=== PATIENT | female | born 1975 | race Hispanic/Latino ===

== ENCOUNTER 2018-10-02 18:17 | Emergency (ER) | payer SELFPAY ==
--- NOTE | 2018-10-02 19:04 | RAD REPORT ---
EXAM DESCRIPTION: RAD - Chest Pa And Lat (2 Views) - 10/02/2018 6:57 pm CLINICAL HISTORY: Cough;Congestion Chest pain. COMPARISON: <Comparisons> FINDINGS: Interstitial markings are mildly prominent which could indicate a viral pneumonitis chroni c bronchitis. Calcified granuloma is seen in the anterior retrosternal airspace. No focal consolidati on typical of bacterial pneumonia is seen. The heart is normal in size. No displaced fractures.
[2018-10-02] MEDS ORDERED: NA CHLORIDE 0.9% 1,000 ML ONE (19:22)
[2018-10-02] MEDS ORDERED: IBUPROFEN 200 MG TAB PO ONE (19:22)
[2018-10-02 19:35] LABS: Absolute Lymphocytes (CBC) 0.3 K/uL (0.7-4.9); Absolute Monocytes 0.5 K/uL (0.1-1.3); Absolute Neutrophil 6.2 K/uL (1.8-8.0); Basophils % 0.4 % (0-1.3); Eosinophils % 0.6 % (0-4.4); Hematocrit 37.9 % (36.0-45.0); Lymphocytes % 3.9 % (15.3-44.8); Monocytes % 6.5 % (3.3-12.3); RBC Red Blood Cell Count 4.24 M/uL (3.86-4.86)
[2018-10-02 19:50] LABS: Albumin 3.9 g/dL (3.4-5.0); Bilirubin Direct 0.2 mg/dL (0-0.2); Bilirubin Total 0.6 mg/dL (0.2-1.0); Potassium 3.8 mmol/L (3.5-5.1)
--- NOTE | 2018-10-02 20:18 | EDPHYS ---
Physician Documentation [facility] Name: Jaja Vanegas Age: 43 yrs Sex: Female : 1975 Arrival Date: 10/02/2018 Time: 18:22 Bed 14 Private MD: ED Physician Mark Ho HPI: 10/02 20:19 This 43 yrs old Female presents to ER via Ambulatory with complaints of kb Abdominal Pain, Nausea. 20:19 The patient presents with abdominal pain that is diffuse. Onset: The symptoms/episode kb began/occurred today. The symptoms do not radiate. Associated signs and symptoms: Pertinent positives: fever, nausea. The symptoms are described as constant. Modifying factors: The symptoms are alleviated by nothing, the symptoms are aggravated by nothing. Severity of pain: At its worst the pain was mild moderate in the emergency department the pain is unchanged. The patient has not experienced similar symptoms in the past. The patient has not recently seen a physician. Pt reports cough, sore throat, fever, abd pain and nausea . 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 - Social history:: Smoking status: Patient/guardian denies using tobacco. - Ebola Screening: : No symptoms or risks identified at this time. ROS: 20:19 Neck: Negative for injury, pain, and swelling, Cardiovascular: Negative for chest pain, kb palpitations, and edema, Back: Negative for injury and pain, : Negative for injury, bleeding, discharge, and swelling, MS/Extremity: Negative for injury and deformity, Skin: Negative for injury, rash, and discoloration, Neuro: Negative for headache, weakness, numbness, tingling, and seizure. 20:19 Constitutional: Positive for body aches, chills, fatigue, fever, malaise. 20:19 ENT: Positive for sore throat. 20:19 Respiratory: Positive for cough, Negative for dyspnea on exertion, hemoptysis, orthopnea, pleurisy, shortness of breath, sputum production, wheezing. 20:19 Abdomen/GI: Positive for abdominal pain, nausea. Exam: 20:18 Constitutional: This is a well developed, well nourished patient who is awake, alert, kb and in no acute distress. Head/Face: Normocephalic, atraumatic. ENT: Nares patent. No nasal discharge, no septal abnormalities noted. Tympanic membranes are normal and external auditory canals are clear. Oropharynx with no redness, swelling, or masses, exudates, or evidence of obstruction, uvula midline. Mucous membranes moist. Neck: Trachea midline, no thyromegaly or masses palpated, and no cervical lymphadenopathy. Supple, full range of motion without nuchal rigidity, or vertebral point tenderness. No Meningismus. Chest/axilla: Normal chest wall appearance and motion. Nontender with no deformity. No lesions are appreciated. Cardiovascular: Regular rate and rhythm with a normal S1 and S2. No gallops, murmurs, or rubs. Normal PMI, no JVD. No pulse deficits. Respiratory: Lungs have equal breath sounds bilaterally, clear to auscultation and percussion. No rales, rhonchi or wheezes noted. No increased work of breathing, no retractions or nasal flaring. Skin: Warm, dry with normal turgor. Normal color with no rashes, no lesions, and no evidence of cellulitis. MS/ Extremity: Pulses equal, no cyanosis. Neurovascular intact. Full, normal range of motion. Neuro: Awake and alert, GCS 15, oriented to person, place, time, and situation. Cranial nerves II-XII grossly intact. Motor strength 5/5 in all extremities. Sensory grossly intact. Cerebellar exam normal. Normal gait. 20:18 Abdomen/GI: Inspection: abdomen appears normal, Bowel sounds: normal, in all quadrants, Palpation: soft, in all quadrants, mild abdominal tenderness, in all quadrants. Vital Signs: 18:29 BP 128 / 77; Pulse 128; Resp 20; Temp 101.2; Pulse Ox 100% on R/A; Weight 84.37 kg; hb Height 5 ft. 4 in. (162.56 cm); Pain 8/10; 19:52 BP 116 / 82; Pulse 78; Resp 16; Pulse Ox 100% on R/A; ae4 20:46 BP 105 / 62; Pulse 110; Resp 16; Temp 100.4(O); Pulse Ox 96% on R/A; jb4 21:13 BP 107 / 56; Pulse 105; Resp 16; Temp 99.9(O); Pulse Ox 95% on R/A; jb4 18:29 Body Mass Index 31.93 (84.37 kg, 162.56 cm) hb MDM: 18:37 Patient medically screened. kb 20:15 Data reviewed: vital signs, nurses notes. Data interpreted: Pulse oximetry: on room air kb is 100 %. Interpretation: normal. Counseling: I had a detailed discussion with the patient and/or guardian regarding: the historical points, exam findings, and any diagnostic results supporting the discharge/admit diagnosis, lab results, radiology results, the need for outpatient follow up, a family practitioner, to return to the emergency department if symptoms worsen or persist or if there are any questions or concerns that arise at home. Refusal of service: The patient/guardian displays adequate decision making capability and despite a detailed discussion of alternatives, benefits, risks, and consequences refuses: CT Scan. Special discussion: Based on the patient's Hx, exam, and Dx evaluation, there is no indication for emergent surgery or inpatient Tx. It is understood by the patient/guardian that if the Sx's persist or worsen they need to return immediately for re-evaluation. ED course: Pt educated on need for CT to r/o appendicitis or other infectious process. Pt does not want to have CT done at this time. Would rather follow up with her PCP. Educated on risks. Pt states she will return if symptoms worsen. States she is feeling better now.. 10/02 18:41 Order name: Basic Metabolic Panel; Complete Time: 20:05 kb 10/02 18:41 Order name: CBC with Diff; Complete Time: 19:46 kb 10/02 18:41 Order name: Hepatic Function; Complete Time: 20:05 kb 10/02 18:41 Order name: Lipase; Complete Time: 20:05 kb 10/02 18:41 Order name: Flu; Complete Time: 19:36 kb 10/02 18:41 Order name: Strep; Complete Time: 19:36 kb 10/02 18:41 Order name: IV Saline Lock; Complete Time: 19:19 kb 10/02 18:41 Order name: Labs collected and sent; Complete Time: 19:19 kb 10/02 18:41 Order name: Chest Pa And Lat (2 Views) XRAY; Complete Time: 19:06 kb 10/02 19:37 Order name: Throat Culture EDNC 10/02 18:41 Order name: Urine Dipstick-Ancillary (obtain specimen); Complete Time: 20:45 kb Administered Medications: 19:15 Drug: Ibuprofen 600 mg Route: PO; jb4 20:45 Follow up: Response: No adverse reaction; Temperature is decreased jb4 19:15 Drug: NS 0.9% 1000 ml Route: IV; Rate: 1000 ml; Site: right antecubital; jb4 20:50 Follow up: IV Status: Completed infusion ae4 20:47 Drug: Tylenol 1000 mg Route: PO; jb4 20:51 Follow up: Response: No adverse reaction ae4 21:15 Follow up: Response: No adverse reaction; Temperature is decreased jb4 Disposition: 10/03 07:09 Co-signature as Attending Physician, Mark Ho MD I agree with the assessment and preston plan of care. Disposition: 10/02/18 20:17 Discharged to Home. Impression: Generalized abdominal pain, Fever, unspecified. - Condition is Stable. - Discharge Instructions: Abdominal Pain, Adult, [id number]. - Medication Reconciliation Form, Thank You Letter, Antibiotic Education, Prescription Opioid Use form. - Follow up: Emergency Department; When: As needed; Reason: Worsening of condition. Follow up: Private Physician; When: 2 - 3 days; Reason: Recheck today's complaints, Continuance of care, Re-evaluation by your physician. Signatures: Dispatcher [employer] [facility] Doris Pat, PSYCHOLOGICAL OPERATIONS SPECIALIST-C PSYCHOLOGICAL OPERATIONS SPECIALIST-Mark Herrmann MD MD cha Baxter, Heather, JACQUES RN Dominick Rousseau RN RN jb4 Sourav Francisco RN ae4 Corrections: (The following items were deleted from the chart) 10/02 20:25 20:07 Abdomen Pelvis W Con+CT.RAD.BRZ ordered. [facility] 21:16 20:17 10/02/2018 20:17 Discharged to Home. Impression: Generalized abdominal pain; jb4 Fever, unspecified. Condition is Stable. Forms are Medication Reconciliation Form, Thank You Letter, Antibiotic Education, Prescription Opioid Use. Follow up: Emergency Department; When: As needed; Reason: Worsening of condition. Follow up: Private Physician; When: 2 - 3 days; Reason: Recheck today's complaints, Continuance of care, Re-evaluation by your physician. kb
--- NOTE | 2018-10-02 20:18 | ER ---
Nurse's Notes [facility] Name: Jaja Vanegas Age: 43 yrs Sex: Female : 1975 Arrival Date: 10/02/2018 Time: 18:22 Bed 14 Private MD: Diagnosis: Generalized abdominal pain;Fever, unspecified Presentation: 10/02 18:27 Presenting complaint: Productive cough with green sputum x 1 week, fever, LLQ pain, hb bilateral leg pain, lower back pain, and sore throat x 2 hrs. Transition of care: patient was not received from another setting of care. Onset of symptoms was October 02, 2018. Risk Assessment: Do you want to hurt yourself or someone else? Patient reports no desire to harm self or others. Care prior to arrival: None. 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 - Social history:: Smoking status: Patient/guardian denies using tobacco. - Ebola Screening: : No symptoms or risks identified at this time. Screenin:54 Abuse screen: Denies threats or abuse. Nutritional screening: No deficits noted. ae4 Tuberculosis screening: No symptoms or risk factors identified. Fall Risk None identified. Assessment: 19:00 General: Appears in no apparent distress. uncomfortable, Behavior is calm, cooperative, jb4 appropriate for age. Pain: Complains of pain in abdomen Pain does not radiate. Pain currently is 8 out of 10 on a pain scale. Quality of pain is described as crampy. Neuro: Level of Consciousness is awake, alert, obeys commands, Oriented to person, place, time, situation. Cardiovascular: Patient's skin is warm and dry. Respiratory: Airway is patent Respiratory effort is even, unlabored, Respiratory pattern is regular, symmetrical. GI: Abdomen is round non-distended, Abd is soft X 4 quads Reports lower abdominal pain, upper abdominal pain, nausea. : No signs and/or symptoms were reported regarding the genitourinary system. EENT: No signs and/or symptoms were reported regarding the EENT system. Derm: Skin is intact, Skin is pink, warm \T\ dry. Musculoskeletal: Circulation, motion, and sensation intact. 20:47 Reassessment: Patient appears in no apparent distress at this time. Patient and/or jb4 family updated on plan of care and expected duration. Pain level reassessed. Patient is alert, oriented x 3, equal unlabored respirations, skin warm/dry/pink. Pt waiting on fluids to finish prior to discharge. Patient states feeling better. 21:13 Reassessment: Patient appears in no apparent distress at this time. Patient and/or jb4 family updated on plan of care and expected duration. Pain level reassessed. Patient is alert, oriented x 3, equal unlabored respirations, skin warm/dry/pink. Pt left Ed ambulatory, IV d/c'ed, left with family. Vital Signs: 18:29 BP 128 / 77; Pulse 128; Resp 20; Temp 101.2; Pulse Ox 100% on R/A; Weight 84.37 kg; hb Height 5 ft. 4 in. (162.56 cm); Pain 8/10; 19:52 BP 116 / 82; Pulse 78; Resp 16; Pulse Ox 100% on R/A; ae4 20:46 BP 105 / 62; Pulse 110; Resp 16; Temp 100.4(O); Pulse Ox 96% on R/A; jb4 21:13 BP 107 / 56; Pulse 105; Resp 16; Temp 99.9(O); Pulse Ox 95% on R/A; jb4 18:29 Body Mass Index 31.93 (84.37 kg, 162.56 cm) hb ED Course: 18:22 Patient arrived in ED. hb 18:28 Triage completed. hb 18:30 Arm band placed on right wrist. hb 18:30 Placed in gown. Bed in low position. Call light in reach. Side rails up X 1. Warm ae4 blanket given. 18:37 Doris Pat FNP-C is PHCP. kb 18:37 Mark Ho MD is Attending Physician. kb 18:48 Sourav Francisco RN is Primary Nurse. ae4 18:54 X-ray completed. Patient tolerated procedure well. Patient moved back from radiology. ls3 18:55 Chest Pa And Lat (2 Views) XRAY In Process Unspecified. EDMS 19:15 Initial lab(s) drawn, by me, sent to lab. Flu and/or RSV swab sent to lab. Strep swab jb4 sent to lab. Inserted saline lock: 20 gauge in right antecubital area, using aseptic technique. Blood collected. 19:19 Flu Sent. jb4 19:19 Strep Sent. jb4 19:19 Basic Metabolic Panel Sent. jb4 19:19 CBC with Diff Sent. jb4 19:19 Hepatic Function Sent. jb4 19:19 Lipase Sent. jb4 21:13 No provider procedures requiring assistance completed. IV discontinued, intact, jb4 bleeding controlled, No redness/swelling at site. Administered Medications: 19:15 Drug: Ibuprofen 600 mg Route: PO; jb4 20:45 Follow up: Response: No adverse reaction; Temperature is decreased jb4 19:15 Drug: NS 0.9% 1000 ml Route: IV; Rate: 1000 ml; Site: right antecubital; jb4 20:50 Follow up: IV Status: Completed infusion ae4 20:47 Drug: Tylenol 1000 mg Route: PO; jb4 20:51 Follow up: Response: No adverse reaction ae4 21:15 Follow up: Response: No adverse reaction; Temperature is decreased jb4 Outcome: 20:17 Discharge ordered by MD. kb 21:13 Discharged to home ambulatory, with family. jb4 21:13 Condition: stable 21:13 Discharge instructions given to patient, family, Instructed on discharge instructions, follow up and referral plans. Demonstrated understanding of instructions, follow-up care. 21:16 Patient left the ED. jb4 Signatures: Dispatcher [employer] [facility] Doris Pat, SECTION LEADER SCREEN PRINTING-C SECTION LEADER SCREEN PRINTING-Ckb Jewels Jimenez RN RN Dominick Boykin RN RN jb4 Keaton Husain ls3 Sourav Francisco, RN RN ae4 Corrections: (The following items were deleted from the chart) 20:49 20:47 Reassessment: Patient appears in no apparent distress at this time. Patient jb4 and/or family updated on plan of care and expected duration. Pain level reassessed. Patient is alert, oriented x 3, equal unlabored respirations, skin warm/dry/pink. Patient states feeling better. jb4
[2018-10-02] MEDS ORDERED: ACETAMINOPHEN 500 MG TAB ONE (20:57)
== END 2018-10-02 21:16 | disposition home or self-care (01) ==
LOC: ER 18:17
DX: R10.9 Unspecified abdominal pain (principal); R50.9 Fever, unspecified
CPT/HCPCS: 36415; 71046; 80048; 80076; 83690; 85025; 87070; 87081; 87804; 96360; 96361; 99284; J7030